=== PATIENT | female | born 1945 | race Caucasian/White ===

== ENCOUNTER 2016-05-31 13:26 | Inpatient (IN) | payer MEDICARE ==
[~2016-05-31] VITALS: Ht 160 cm; Wt 48.1 kg
[~2016-05-31 13:26] MED LIST: PROPOFOL 50ML PER ML IV ONE
[2016-05-31] MEDS ORDERED: SODIUM CHLORIDE 0.9% 1,000 ML ONE (14:22)
[2016-05-31] MEDS ORDERED: ONDANSETRON 4 MG VIAL ONE (14:22)
[2016-05-31] MEDS ORDERED: MAG HYDROX 30 ML UDC PO PRN (16:40)
[2016-05-31] MEDS ORDERED: ACETAMINOPHEN 325 MG TAB PO PRN (16:40)
[2016-05-31] MEDS ORDERED: ALU/MAG/SIM 30 ML UDC PO PRN (16:40)
[2016-05-31] MEDS ORDERED: BISACODYL EC 5 MG TAB PO PRN (16:40)
[2016-05-31] MEDS ORDERED: BISACODYL 10 MG SUPP RECTAL PRN (16:40)
[2016-05-31] MEDS ORDERED: MORPHINE 2 MG/ML SYR IV PRN (16:40)
[2016-05-31] MEDS ORDERED: SALINE FLUSH 10 ML FLUSH PRN (16:40)
[2016-05-31] MEDS ORDERED: GLUCAGON 1 MG VIAL IM PRN (17:05)
[2016-05-31] MEDS ORDERED: DEXTROSE 50% SYRINGE 50 ML IV PRN (17:05)
[2016-05-31 18:05] VITALS: BP_SYST 115; RESP 18; TEMP 97.9
[2016-05-31 18:14] VITALS: Ht 160 cm; Wt 48.1 kg
[2016-05-31] MEDS: LEVOFLOXACIN 750 MG/150 ML 150 ML IV SCH (18:14)
[2016-05-31] MEDS: PREDNISONE 5 MG TAB PO SCH (18:16)
[2016-05-31] MEDS: ONDANSETRON 4 MG VIAL IV PRN (18:23)
[2016-05-31] MEDS ORDERED: NEB-BROVANA 15 MCG/2 ML INH SCH (19:00)
[2016-05-31] MEDS: NEB-BROVANA 15 MCG/2 ML INH SCH (19:00)
[2016-05-31] MEDS: DUONEB INH SCH ×2 (19:00→23:29)
[2016-05-31 19:21] VITALS: BP_SYST 116; RESP 18; TEMP 97.2
[2016-05-31] MEDS: SODIUM CHLORIDE 0.9% FLUSH BAG 500 ML IV SCH (19:53)
[2016-05-31] MEDS: SALINE FLUSH 10 ML FLUSH SCH (19:53)
[2016-05-31] MEDS: METRONIDAZOLE 500MG/100ML 100 ML IV SCH (20:55)
[2016-05-31] MEDS ORDERED: AZELASTINE NASAL 30 ML BTL NARE EACH SCH (21:00)
[2016-05-31] MEDS: MONTELUKAST 10 MG TAB PO SCH (22:12)
[2016-05-31] MEDS: clonazePAM 0.5 MG TAB PO SCH (22:12)
[2016-05-31] MEDS: CETIRIZINE 10 MG TAB PO SCH (22:12)
[2016-05-31] MEDS: PANTOPRAZOLE 40 MG VIAL IV SCH (22:12)
[2016-05-31] MEDS: METOPROLOL TART 50 MG TAB PO SCH (22:13)
[2016-05-31 23:26] VITALS: BP_SYST 93; RESP 18; TEMP 98.2
[2016-05-31 23:30] VITALS: RESP 18
[2016-06-01] VITALS (10 sets, daily range): BP systolic 88–130; RESP 16–27; TEMP 97.2–98.4
[2016-06-01] MEDS: METRONIDAZOLE 500MG/100ML 100 ML IV SCH ×5 (01:22→23:28)
[2016-06-01] MEDS: DUONEB INH SCH ×6 (02:53→22:28)
[2016-06-01] MEDS: SALINE FLUSH 10 ML FLUSH SCH ×2 (06:37→19:49)
[2016-06-01] MEDS: NEB-BROVANA 15 MCG/2 ML INH SCH ×2 (06:56→18:51)
[2016-06-01] MEDS: METOPROLOL TART 50 MG TAB PO SCH ×2 (09:00→19:49)
[2016-06-01] MEDS: clonazePAM 0.5 MG TAB PO SCH (09:15)
[2016-06-01] MEDS: LEVOFLOXACIN 750 MG/150 ML 150 ML IV SCH (09:15)
[2016-06-01] MEDS: PANTOPRAZOLE 40 MG VIAL IV SCH ×2 (09:15→19:49)
[2016-06-01] MEDS: PREDNISONE 5 MG TAB PO SCH (09:16)
[2016-06-01] MEDS: SODIUM CHLORIDE 0.9% 1,000 ML IV SCH ×2 (09:17→23:29)
[2016-06-01] MEDS: ONDANSETRON 4 MG VIAL IV PRN ×2 (09:23→23:31)
[2016-06-01] MEDS: AZELASTINE NASAL 30 ML BTL NARE EACH SCH ×2 (09:24→19:49)
[2016-06-01] MEDS ORDERED: PROPOFOL 50ML PER ML IV ONE (09:44)
[2016-06-01] MEDS ORDERED: LIDOCAINE 2% SYR 5 ML IV ONE (09:44)
[2016-06-01] MEDS ORDERED: LACT RINGERS 1,000 ML IV SCH (14:45)
[2016-06-01] MEDS ORDERED: PEG/E-LYTE 4,000 ML BTL PO ONE (17:20)
[2016-06-01] MEDS: CETIRIZINE 10 MG TAB PO SCH (19:48)
[2016-06-01] MEDS: MONTELUKAST 10 MG TAB PO SCH (19:48)
[2016-06-02] VITALS (7 sets, daily range): BP systolic 116–151; RESP 16–20; TEMP 97.3–98
[2016-06-02] MEDS: DUONEB INH SCH ×6 (02:39→22:17)
[2016-06-02] MEDS ORDERED: PEG/E-LYTE 4,000 ML BTL PO ONE ×2 (04:00→14:55)
[2016-06-02] MEDS: SODIUM CHLORIDE 0.9% FLUSH BAG 500 ML IV SCH (04:33)
[2016-06-02] MEDS: NEB-BROVANA 15 MCG/2 ML INH SCH ×2 (05:05→18:09)
[2016-06-02] MEDS: METRONIDAZOLE 500MG/100ML 100 ML IV SCH ×4 (05:45→23:34)
[2016-06-02] MEDS: SALINE FLUSH 10 ML FLUSH SCH ×2 (08:00→19:13)
[2016-06-02] MEDS ORDERED: MAG CIT SOLN 300 ML PO STA (08:45)
[2016-06-02] MEDS: METOPROLOL TART 50 MG TAB PO SCH ×2 (09:00→19:14)
[2016-06-02] MEDS: PANTOPRAZOLE 40 MG VIAL IV SCH ×2 (09:04→19:13)
[2016-06-02] MEDS: AZELASTINE NASAL 30 ML BTL NARE EACH SCH ×2 (09:04→19:13)
[2016-06-02] MEDS: LEVOFLOXACIN 750 MG/150 ML 150 ML IV SCH (09:05)
[2016-06-02] MEDS: ONDANSETRON 4 MG VIAL IV PRN (09:12)
[2016-06-02] MEDS: PREDNISONE 5 MG TAB PO SCH (15:53)
[2016-06-02] MEDS: MONTELUKAST 10 MG TAB PO SCH (19:14)
[2016-06-02] MEDS: CETIRIZINE 10 MG TAB PO SCH (19:14)
[2016-06-02] MEDS: clonazePAM 0.5 MG TAB PO PRN (19:18)
[2016-06-03] VITALS (14 sets, daily range): BP systolic 88–139; RESP 16–24; TEMP 97.1–98.5
[2016-06-03] MEDS: DUONEB INH SCH ×6 (02:39→22:12)
[2016-06-03] MEDS ORDERED: PEG/E-LYTE 4,000 ML BTL PO ONE (04:00)
[2016-06-03] MEDS: SODIUM CHLORIDE 0.9% FLUSH BAG 500 ML IV SCH (05:06)
[2016-06-03] MEDS: SODIUM CHLORIDE 0.9% 1,000 ML IV SCH ×2 (05:10→08:25)
[2016-06-03] MEDS: METRONIDAZOLE 500MG/100ML 100 ML IV SCH ×3 (05:10→18:02)
[2016-06-03] MEDS: ONDANSETRON 4 MG VIAL IV PRN ×2 (05:48→08:23)
[2016-06-03] MEDS: NEB-BROVANA 15 MCG/2 ML INH SCH ×2 (06:38→18:47)
[2016-06-03] MEDS: clonazePAM 0.5 MG TAB PO PRN (08:23)
[2016-06-03] MEDS: PREDNISONE 5 MG TAB PO SCH (08:23)
[2016-06-03] MEDS: LEVOFLOXACIN 750 MG/150 ML 150 ML IV SCH (08:24)
[2016-06-03] MEDS: METOPROLOL TART 50 MG TAB PO SCH ×2 (08:24→19:33)
[2016-06-03] MEDS: PANTOPRAZOLE 40 MG VIAL IV SCH (08:24)
[2016-06-03] MEDS: AZELASTINE NASAL 30 ML BTL NARE EACH SCH ×2 (11:00→19:33)
[2016-06-03] MEDS: SALINE FLUSH 10 ML FLUSH SCH ×2 (11:13→19:34)
[2016-06-03] MEDS: MONTELUKAST 10 MG TAB PO SCH (19:33)
[2016-06-03] MEDS: CETIRIZINE 10 MG TAB PO SCH (19:33)
[2016-06-03] MEDS: BACITRACIN OINT TOPICAL SCH (19:34)
[2016-06-04] MEDS: METRONIDAZOLE 500MG/100ML 100 ML IV SCH ×2 (00:31→05:17)
[2016-06-04] MEDS: DUONEB INH SCH ×3 (02:54→10:58)
[2016-06-04 04:13] VITALS: BP_SYST 102; TEMP 98.5
[2016-06-04 04:15] VITALS: RESP 18
[2016-06-04] MEDS: SODIUM CHLORIDE 0.9% FLUSH BAG 500 ML IV SCH (05:21)
[2016-06-04] MEDS: NEB-BROVANA 15 MCG/2 ML INH SCH (06:37)
[2016-06-04 07:42] VITALS: BP_SYST 144; RESP 18; TEMP 97.8
[2016-06-04] MEDS: METOPROLOL TART 50 MG TAB PO SCH (08:07)
[2016-06-04] MEDS: PREDNISONE 5 MG TAB PO SCH (08:07)
[2016-06-04] MEDS: AZELASTINE NASAL 30 ML BTL NARE EACH SCH (08:08)
[2016-06-04] MEDS: LEVOFLOXACIN 750 MG/150 ML 150 ML IV SCH (08:11)
[2016-06-04] MEDS: BACITRACIN OINT TOPICAL SCH (08:12)
[2016-06-04] MEDS: SALINE FLUSH 10 ML FLUSH SCH (08:12)
[2016-06-04] MEDS ORDERED: PANTOPRAZOLE 40 MG TAB PO SCH (09:05)
[2016-06-04 11:16] VITALS: BP_SYST 125; RESP 16; TEMP 97.6
[2016-06-04 11:25] VITALS: BP_SYST 125; RESP 16; TEMP 97.6
== END 2016-06-04 12:15 | disposition home or self-care (01) | DRG 394 ==
LOC: ENRESERVTM → ENRESERVDT → ER 13:26 → ENPENDDIS 16:40 → EMR 16:40 → 5THE 17:55
PROVIDERS: ADMIT Family Medicine Addiction Medicine; ATTEND Family Medicine Addiction Medicine
PROC: 0DJ08ZZ Inspection of Upper Intestinal Tract, Via Natural or Artificial Opening Endoscopic (ICD-10-PCS; principal; 2016-06-01 12:45)
PROC: 0DBM8ZX Excision of Descending Colon, Via Natural or Artificial Opening Endoscopic, Diagnostic (ICD-10-PCS; 2016-06-03)
PROC: 0DBL8ZX Excision of Transverse Colon, Via Natural or Artificial Opening Endoscopic, Diagnostic (ICD-10-PCS; 2016-06-03)
PROC: 0DBK8ZX Excision of Ascending Colon, Via Natural or Artificial Opening Endoscopic, Diagnostic (ICD-10-PCS; 2016-06-03)
CPT/HCPCS: 36415; 71010; 74176; 80048; 80053; 82553; 82947; 84484; 85014; 85018; 85025; 85610; 86850; 86900; 86901; 87040; 87045; 87046; 88305; 93005; 94640; 94799; 96361; 96374; 99222; 99232; 99233; 99239